=== PATIENT | male | born 1965 | race African-American/Black ===

== ENCOUNTER 2017-04-13 19:59 | Emergency (ER) | payer SELFPAY ==
[~2017-04-13] VITALS: Ht 185.4 cm; Wt 93.3 kg
[2017-04-13 20:00] VITALS: BP 154/93
[2017-04-13] MEDS ORDERED: KETOROLAC 30 MG/1 ML IM ONE (20:30)
[2017-04-13] MEDS ORDERED: KETOROLAC 30 MG/1 ML ONE (20:34)
== END 2017-04-13 21:34 | disposition home or self-care (01) ==
LOC: ED 21:00
DX: M25.562 Pain in left knee (principal); G89.29 Other chronic pain
CPT/HCPCS: 73564; 96372; 99284; J1885

== ENCOUNTER 2017-04-14 22:36 | Emergency (ER) | payer SELFPAY ==
[~2017-04-14] VITALS: Ht 185.4 cm; Wt 92.5 kg
[2017-04-15 00:13] LABS: BLOOD UREA NITROGEN 14 mg/dL (7-18)
[2017-04-15] MEDS ORDERED: LIDOCAINE 1%, 20ML ONE (01:22)
[2017-04-15] MEDS ORDERED: LIDOCAINE 1%, 20ML SQ ONE (01:30)
[2017-04-15] MEDS ORDERED: ACETAMINOPHEN 325 MG TABLET PO ONE (02:30)
[2017-04-15 02:37] VITALS: BP 130/79
[2017-04-15] MEDS ORDERED: ACETAMINOPHEN 325 MG TABLET ONE (03:20)
== END 2017-04-15 05:38 | disposition home or self-care (01) ==
LOC: ED 23:59
DX: M17.12 Unilateral primary osteoarthritis, left knee (principal); I10 Essential (primary) hypertension; E11.9 Type 2 diabetes mellitus without complications
CPT/HCPCS: 20610; 36415; 80048; 82040; 82945; 84157; 84560; 85025; 85651; 85810; 86140; 87070; 87205; 89050; 89060